=== PATIENT | female | born 1960 | race Caucasian/White ===

== ENCOUNTER 2024-04-24 22:13 | Observation (INO) ==
--- NOTE | 2024-04-24 22:31 | Emergency Department Note ---
History of Present Illness General Chief complaint: Seizure Stated complaint: Seizure History of Present Illness This 63-year-old female with a history of seizures presents to the ER for seizures who is visiting from [place]. Patient states she was out of her gabapentin for 4 days and was finally able to get it refilled today. She did take her evening dose. She believes she had a seizure secondary to this. She states she currently has at least a months worth of all her seizure meds. Patient states she had a grand mal seizure for about 2 minutes while laying on her parents bed. Patient states she feels a little soreness generalized but did not fall to the floor or any other injuries. Patient denies chest pain, dyspnea, fever, chills, numbness, tingling, abdominal pain or any other medical complaints. Home Medications Medication Instructions Recorded Confirmed Type carbamazepine 300 mg 300 mg PO QAM 11/06/20 04/25/24 History capsule,extended release [id number] olmesartan 40 mg tablet 40 mg PO HS 11/06/20 04/25/24 History oxycodone 5 mg tablet 5 mg PO Q6H PRN pain #10 tabs 11/07/20 04/25/24 Rx gabapentin 300 mg capsule 300 mg PO BID 04/25/24 04/25/24 History levetiracetam 500 mg tablet 500 mg PO BID #60 tabs 04/25/24 Rx (Keppra) Allergies Allergy/AdvReac Type Severity Reaction Status Date / Time codeine AdvReac Intermediate TACHYCARDIA--REQUIRED Verified 11/06/20 22:31 ER VISIT [facility] AdvReac Intermediate ANY Uncoded 11/06/20 22:31 [facility]--TACHYCARDIA Past Med/Surg History Problem List (Updated 04/25/24 @ 01:38 by Cheri Mayer PA-C) Asymptomatic bacteriuria Hypertension Seizure (Acute) Medical History Seizures Surgical History (Updated 11/07/20 @ 02:11 by Martha Lopez PA-C) No pertinent past surgical history Social History Smoking Status: Never smoker Hx Alcohol Use: No Hx Substance Use: No Preferred Language: Slovak Communication Ability: Effective Public Health Nutritionist Required: No Beliefs That Will Affect Care: None Current Living Situation: Alone Current Living Situation Comment: Lives alone in [place]-currently here visiting family since January Other Information That Helps Us Care for You: No Feels Safe at Home: Yes Safety Concerns: Feels Safe At This Time Assistive Devices: Walker Review of Systems A total of 10 systems reviewed and were otherwise negative Physical Exam Vital Signs Vital Signs - 24 hr 04/24/24 22:20 04/24/24 22:28 04/25/24 00:39 Temperature 37.1 C Temperature Source Oral Pulse Rate 93 H 94 H Pulse Rate [Apical] 115 H Pulse Rhythm Regular Pulse Strength Normal Respiratory Rate 15 20 Respiratory Effort / Characteristics Non-Labored Respiratory Depth Normal Respiratory Pattern Regular Blood Pressure 180/130 H Blood Pressure [Left Arm] 169/90 H Blood Pressure Mean 146 Blood Pressure Mean [Left Arm] 116 Pulse Oximetry 98 98 Oxygen Delivery Method Room Air Room Air Sepsis Recent Fever Within 48 Hours No Sepsis New/Unexplained Change in Mental Status N/A Sepsis Action Taken by Nursing No Action Required VITALS: Vitals are noted on the nurse's note and reviewed by myself. Vital signs reviewed. GENERAL: Pleasant female moving all extremities, in no acute distress, nondiaphoretic, well-developed well-nourished. SKIN: The skin was without rashes, erythema, edema, or bruising. There is no tenting of the skin. Capillary reflex less than 2 seconds. HEAD: Normocephalic atraumatic. EARS: External auditory canals clear EYES: Pupils equal round and reactive to light and accommodation. Conjunctivae without injection, sclerae without icterus. Extraocular movements intact. NOSE: Patent, no discharge. MOUTH: Mucous membranes moist. Pharynx without erythema or exudate. Uvula midline. Airway patent. Tongue does not deviate. NECK: Supple without nuchal rigidity. No lymphadenopathy. No thyromegaly. Cervical spine is nontender. No JVD. HEART: Regular rate and rhythm LUNGS: Clear to auscultation bilaterally without wheezes, rales or rhonchi. No retractions or accessory muscle use. ABDOMEN: Positive bowel sounds x 4. Normal tympanic percussion. Soft, nontender, without masses or organomegaly. Ibarra sign negative. No guarding or rebound tenderness. No CVA tenderness MUSCULOSKELETAL: No muscle atrophy, erythema, or edema noted. NEURO: Patient was alert and oriented to person place and time. Normal sensation to light and sharp touch. No focal neurological deficits. Course Administered Medications Discontinued Medications Carbamazepine (Carbamazepine Xr 100 Mg Tabcr) 300 mg PO QAM ABELARDO Stop: 05/25/24 08:59 Last Admin: 04/25/24 08:26 Dose: 300 mg Documented By: SUSANNAH Gabapentin (Gabapentin 300 Mg Cap) 300 mg PO BID ABELARDO Stop: 05/25/24 08:59 Last Admin: 04/25/24 08:26 Dose: 300 mg Documented By: SUSANNAH Sodium Chloride (Nss) 1,000 mls @ 999 mls/hr IV .Q1H1M ONE Stop: 04/24/24 23:26 Last Infusion: 04/25/24 00:00 Dose: Infused Documented By: Admin: 04/24/24 22:38 Dose: 999 mls/hr Documented By: TUNG Acetaminophen ([facility]) 1,000 mg in 100 mls @ 400 mls/hr IV NOW STA Stop: 04/25/24 01:08 Last Infusion: 04/25/24 02:24 Dose: Infused Documented By: Admin: 04/25/24 01:53 Dose: 400 mls/hr Documented By: REE Sodium Chloride (Nss) 1,000 mls @ 80 mls/hr IV .[id number] ABELARDO Stop: 04/25/24 13:59 Last Admin: 04/25/24 02:55 Dose: 80 mls/hr Documented By: REE Levetiracetam (Levetiracetam 500 Mg/5 Ml Vial) 1,000 mg IV NOW STA Stop: 04/25/24 00:49 Last Admin: 04/25/24 01:47 Dose: 1,000 mg Documented By: REE Levetiracetam (Levetiracetam 500 Mg Tab) 500 mg PO BID ABELARDO Stop: 05/25/24 08:59 Last Admin: 04/25/24 08:26 Dose: 500 mg Documented By: SUSANNAH Lorazepam (Lorazepam 1 Mg/1 Ml Syr Ed Inj Use) Confirm Administered Dose 1 mg .ROUTE .STK-MED ONE Stop: 04/25/24 00:29 Last Admin: 04/25/24 03:06 Dose: Not Given Documented By: REE Losartan Potassium (Losartan Potassium 50 Mg Tab) 100 mg PO HS ABELARDO Stop: 05/25/24 02:29 Last Admin: 04/25/24 03:12 Dose: Not Given Documented By: REE Medical Decision Making Medical Records Attestation: I reviewed the patient's medical records. Home Medications Current Medication List: was personally reviewed by me Laboratory Data Attestation: I reviewed the patient's lab results. 04/25/24 06:14 04/25/24 06:14 Lab Results 04/24/24 04/24/24 04/24/24 Range/Units 22:29 22:39 22:47 WBC 10.05 (4.8-10.8) K/ul RBC 4.16 L (4.20-5.40) M/uL Hgb 12.6 (12.0-16.0) g/dl Hct 37.6 (37.0-47.0) % MCV 90.4 (80.0-100.0) fL MCH 30.3 (25.0-34.0) pg MCHC 33.5 (32.0-36.0) g/dL RDW Std Deviation 40.7 (36.4-46.3) fL RDW Coeff of Sharif 12.3 (11.5-14.5) % Plt Count 463 H (130-400) K/uL MPV 8.6 L (9.4-12.4) fL Immature Gran % (Auto) 0.4 % Neut % (Auto) 69.4 % Lymph % (Auto) 21.2 % Cocke % (Auto) 6.3 % Eos % (Auto) 1.7 % Baso % (Auto) 1.0 % Neut # (Auto) 6.98 H (1.40-6.50) K/uL Lymph # (Auto) 2.13 (1.20-3.40) K/uL Cocke # (Auto) 0.63 H (0.11-0.59) K/uL Eos # (Auto) 0.17 (0.00-0.50) K/uL Baso # (Auto) 0.10 (0.00-0.20) K/uL Immature Gran # (Auto) 0.04 (0.01-0.20) K/uL Sodium 136 (136-145) mmol/L Potassium 3.8 (3.5-5.1) mmol/L Chloride 102 (98-107) mmol/L Carbon Dioxide 24 (21-32) mmol/L Anion Gap 10 (3-11) BUN 18 (6-23) mg/dl Creatinine 1.03 (0.6-1.2) mg/dl Est Cr Clr Drug Dosing 70.3 ml/min eGFR 60.72 BUN/Creatinine Ratio 17.5 (10-20) Glucose 101 H (70-99(Fasting)) mg/dl POC Glucose 114 H (70-99) mg/dl Lactate 2.5 H* (0.4-2.0) mmol/L Calcium 9.2 (8.6-10.3) mg/dl Magnesium 2.1 (1.7-2.4) mg/dl Total Bilirubin 0.2 (0.2-1.0) mg/dl AST 22 (13-39) U/L ALT 18 (7-52) U/L Alkaline Phosphatase 99 (34-104) U/L Total Creatine Kinase 44 (26-192) U/L Total Protein 7.7 (6.0-8.3) gm/dl Albumin 4.4 (3.4-5.0) gm/dl Globulin 3.3 (2.5-4.0) gm/dl Albumin/Globulin Ratio 1.3 (0.9-2) TSH 3.420 (0.300-4.500) uIu/ml Urine Color Urine Appearance (Clear) Urine pH (4.5-7.5) Ur Specific [place] (1.000-1.030) Urine Protein (Negative) Urine Glucose (UA) (Negative) Urine Ketones (Negative) Urine Blood (Negative) Urine Nitrite (Negative) Urine Bilirubin (Negative) Urine Urobilinogen (Negative) Ur Leukocyte Esterase (Negative) Urine WBC (Auto) (0-5) /hpf Urine RBC (Auto) (0-2) /hpf U Hyaline Cast (Auto) (0-2) /lpf U Epithel Cells (Auto) (0-2) /hpf Urine Bacteria (Auto) (None Seen) 04/25/24 Range/Units 00:30 WBC (4.8-10.8) K/ul RBC (4.20-5.40) M/uL Hgb (12.0-16.0) g/dl Hct (37.0-47.0) % MCV (80.0-100.0) fL MCH (25.0-34.0) pg MCHC (32.0-36.0) g/dL RDW Std Deviation (36.4-46.3) fL RDW Coeff of Sharif (11.5-14.5) % Plt Count (130-400) K/uL MPV (9.4-12.4) fL Immature Gran % (Auto) % Neut % (Auto) % Lymph % (Auto) % Cocke % (Auto) % Eos % (Auto) % Baso % (Auto) % Neut # (Auto) (1.40-6.50) K/uL Lymph # (Auto) (1.20-3.40) K/uL Cocke # (Auto) (0.11-0.59) K/uL Eos # (Auto) (0.00-0.50) K/uL Baso # (Auto) (0.00-0.20) K/uL Immature Gran # (Auto) (0.01-0.20) K/uL Sodium (136-145) mmol/L Potassium (3.5-5.1) mmol/L Chloride (98-107) mmol/L Carbon Dioxide (21-32) mmol/L Anion Gap (3-11) BUN (6-23) mg/dl Creatinine (0.6-1.2) mg/dl Est Cr Clr Drug Dosing ml/min eGFR BUN/Creatinine Ratio (10-20) Glucose (70-99(Fasting)) mg/dl POC Glucose (70-99) mg/dl Lactate (0.4-2.0) mmol/L Calcium (8.6-10.3) mg/dl Magnesium (1.7-2.4) mg/dl Total Bilirubin (0.2-1.0) mg/dl AST (13-39) U/L ALT (7-52) U/L Alkaline Phosphatase (34-104) U/L Total Creatine Kinase (26-192) U/L Total Protein (6.0-8.3) gm/dl Albumin (3.4-5.0) gm/dl Globulin (2.5-4.0) gm/dl Albumin/Globulin Ratio (0.9-2) TSH (0.300-4.500) uIu/ml Urine Color Yellow Urine Appearance Clear (Clear) Urine pH 5.5 (4.5-7.5) Ur Specific [place] 1.020 (1.000-1.030) Urine Protein Trace H (Negative) Urine Glucose (UA) Negative (Negative) Urine Ketones Trace H (Negative) Urine Blood Negative (Negative) Urine Nitrite Negative (Negative) Urine Bilirubin Negative (Negative) Urine Urobilinogen Negative (Negative) Ur Leukocyte Esterase Negative (Negative) Urine WBC (Auto) 0-5 (0-5) /hpf Urine RBC (Auto) 3-5 H (0-2) /hpf U Hyaline Cast (Auto) 0-2 (0-2) /lpf U Epithel Cells (Auto) 6-10 H (0-2) /hpf Urine Bacteria (Auto) 1+ H (None Seen) Imaging Data Radiologist's Impression: Head CT 04/25/24 00:48 EXAM: CT head/brain wo con CLINICAL HISTORY: Pt''s daughter reports pt laid down in bed and had a grand mal seizure. Pt postdictal state upon arrival. EMS reports pt ran out of gabapentin 4 days ago and took first dose today. EMS reports pt does not have an aura but does have "right arm jerks" that typically indicate the medication is "not right". Hx of seizures. Last seizure 2020. Pt c/o left sided headache. PW/GS TECHNIQUE: An axial non-contrast CT scan of the brain was performed from the skull base to the high parietal region. One of the following dose reduction techniques was utilized for this exam: Automated exposure control, adjustment of the mA and/or kV according to patient size, and use of iterative reconstruction. COMPARISON: None. FINDINGS: Brain Parenchyma: Mild age-related cerebral Involutional changes noted Normal attenuation of the cerebral hemispheres, cerebellum, and brainstem. No evidence of acute infarct, hemorrhage, or mass effect. No abnormal areas of hypo- or hyperattenuation. Ventricular System: Ventricles are normal in size and configuration. No evidence of hydrocephalus or ventricular enlargement. Subarachnoid Spaces: wide frontal sulci bilaterlally .. No evidence of subarachnoid hemorrhage or extra-axial fluid collections. Cerebellum and Brainstem: Normal size and signal. No masses, lesions, or areas of abnormal density. Orbits: Normal appearance of the globes, optic nerves, and extraocular muscles. No evidence of orbital masses or abnormal density. Sinuses: Clear paranasal sinuses. No evidence of sinusitis or mucosal thickening. Mastoid Air Cells: Clear mastoid air cells. No evidence of mastoiditis. Skull: Normal skull morphology. IMPRESSION: 1. No acute intracranial abnormality. 2. Mild age-related cerebral Involutional changes noted. Electronically signed by Linda Sarmiento 04-25-2024 06:57 AM MDM Narrative Prior records/ancillary studies reviewed. Patient placed in seizure precautions immediately upon arrival. Nursing notes reviewed. Additional history obtained from family The patient's history was concerning for a possible seizure. Differential diagnosis: Etiologies such as infection, hypoglycemia, electrolyte abnormalities, cardiac sources, intracerebral event, trauma, toxicologic, neurologic, as well as others were entertained. Physical examination: As above. No signs of trauma. ER treatment provided: An order was placed for continuous cardiac monitoring. The monitor shows a rate of 60-100 with a sinus rhythm per my interpretation. IV fluids, gabapentin, Keppra On reassessment the patient felt better. Diagnostics interpretation by me: ECG: ordered for seizure ECG: Normal sinus, normal intervals, no acute ST-T wave changes. Impression normal sinus rhythm independently interpreted by myself Imaging was reviewed and read by radiology The labs Independently Interpreted by myself revealed no worrisome leukocytosis, elevated lactic consistent with patient having a seizure Keppra and Carbamazepine are send outs Consultation: Neurology was consulted patient had another seizure while in the ER. Dr. Nixon recommends giving a gram of Keppra IV and increasing Keppra to the 500 mg twice daily. Consultation: Medicine was consulted case discussed. Patient will be admitted to the medical service for multiple seizures. The patient has a history of seizures and experienced another episode most likely from missing her gabapentin for the past 4 days. Patient had a second seizure while in the ER. I did consult Dr. Nixon and recommends giving a gram of Keppra IV and increasing Keppra to 500 twice daily. Medicine was consulted case discussed. Patient was admitted to the medical service. By the evaluation outlined above emergent etiologies such as infection, hypoglycemia, electrolyte abnormalities, cardiac sources, intracerebral event, toxicologic, as well as others were deemed relatively unlikely. Patient does not drive. The pt informed about the findings as listed above. All questions were answered and pleased with the treatment. The chart was completed utilizing [employer] voice recognition software. Grammatical errors, random word insertions, pronoun errors, and incomplete sentences are an occassional consequence of this system due to software limitations, ambient noise, and hardware issues. Any formal questions or concerns about the content, text, or information contained within the body of this dictation should be directly addressed to the physician resident assistant for clarification. Impression & Plan Seizure Discharge Plan Visit Data Chief Complaint: Seizure Stated Complaint: Seizure ED Provider: Ramirez Bustos ED Midlevel Provider: Martha Lopez Discharge Problem: Seizure Patient Disposition: Admitted As Inpatient Condition: Good Discharge Instructions Interventions: ED Discharge Assessment Last Done: 04/25/24 02:30
[2024-04-24] MEDS: SODIUM CHLORIDE 0.9% 1,000 ML IV ONE (22:38)
[2024-04-24 22:46] LABS: Eosinophils # (auto) 0.17 K/uL (0.00-0.50); Eosinophils % (auto) 1.7 %; Hematocrit (blood only) 37.6 % (37.0-47.0); Hemoglobin 12.6 g/dl (12.0-16.0); Immature Granulocytes # (auto) 0.04 K/uL (0.01-0.20); Immature Granulocytes % (auto) 0.4 %; Lymphocytes # (auto) 2.13 K/uL (1.20-3.40); Lymphocytes % (auto) 21.2 %; Mean Corpuscular Hemoglobin 30.3 pg (25.0-34.0); Mean Corpuscular Hgb Conc 33.5 g/dL (32.0-36.0); Mean Corpuscular Volume 90.4 fL (80.0-100.0); Mean Platelet Volume 8.6 fL (9.4-12.4); Monocytes # (auto) 0.63 K/uL (0.11-0.59); Monocytes % (auto) 6.3 %; Neutrophils # (auto) 6.98 K/uL (1.40-6.50); Neutrophils % (auto) 69.4 %; Platelet Count 463 K/uL (130-400); RDW Coefficient of Variation 12.3 % (11.5-14.5); RDW Standard Deviation 40.7 fL (36.4-46.3); Red Blood Count 4.16 M/uL (4.20-5.40); White Blood Count 10.05 K/ul (4.8-10.8)
[2024-04-24 23:03] LABS: Albumin Globulin Ratio 1.3 (0.9-2); Albumin Level 4.4 gm/dl (3.4-5.0); BUN Creatinine Ratio 17.5 (10-20); Bilirubin,Total 0.2 mg/dl (0.2-1.0); Calcium 9.2 mg/dl (8.6-10.3); Creatinine Clr Calc Pharmacy 70.3 ml/min; Globulin 3.3 gm/dl (2.5-4.0); Magnesium 2.1 mg/dl (1.7-2.4); Potassium 3.8 mmol/L (3.5-5.1); Total Protein 7.7 gm/dl (6.0-8.3)
[2024-04-24 23:17] LABS: Thyroid Stimulating Hormone 3.42 uIu/ml (0.300-4.500)
[2024-04-25 01:04] LABS: Appearance Urine Clear (Clear); Bacteria Urine Automated 1+ (None Seen); Bilirubin Urine Negative (Negative); Blood Urine Negative (Negative); Cast Urine Automated 0-2 /lpf (0-2); Color Urine Yellow; Glucose Urine UA Negative (Negative); Ketones Urine Trace (Negative); Leukocyte Esterase Urine Negative (Negative); Nitrite Urine Negative (Negative); Protein Urine Trace (Negative); Urobilinogen Urine Negative (Negative); WBC Urine Automated 0-5 /hpf (0-5); pH Urine 5.5 (4.5-7.5)
--- NOTE | 2024-04-25 01:13 | History & Physical Report ---
Date of Service April 25, 2024 Assessment & Plan (1) Seizure: (2) Hypertension: (3) Asymptomatic bacteriuria: Plan Patient is a 63-year-old female who lives in [place] who is visiting. She has a past medical history of a known seizure disorder and hypertension. 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 She is being admitted due to a seizure with the medication changes noted in the plan below. #Seizure pt has a grand mal seizure lasting approximately 2 minutes Has a known history of seizure disorder but has been out of her gabapentin x 4 days ER provider spoke with on-call neurologist, Dr. Nixon who recommended the following - increase Keppra 500 Mg daily to BID - Load with 1000 mg IV Keppra now - obtain a head CT head CT ordered lactate 2.5 -> 2L NSS bolus -> 3.1 - repeat lactate with am labs - would expect it to be elevated with recent seizure Ck negative given Ativan 1mg IV in ED continue home carbamazepine 300mg daily and gabapentin 300mg BID carbamazepine and Keppra levels ordered in ED gentle IVF with NSS x1 bag overnight #HTN continue olmesartan HS #Asymptomatic bacteriuria UA showing trace protein, trace ketones, 3-5 RBC, 6-10 epithelial cells, 1+ bacteria Likely contaminant with epithelial cells Asymptomatic Follow cultures VTE ppx: SCDs - low risk and obs Diet: regular Dispo: med tele Admission and Anticipated Discharge Date Admission Date: 04/25/24 History of Present Illness Chief Complaint: seizure Primary Care Provider: LOLA HUNTER Patient is a 63-year-old female who lives in [place] who is visiting. She has a past medical history of a known seizure disorder and hypertension. 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 She had 2 witnessed grand mal seizures today. She missed 4 days of her gabapentin. She takes the following medications carbamazepine 300 QAM, Gabapentin 300 BID, and Keppra 500 daily. Denies fevers, and ROS otherwise unrevealing. She is mildly lethargic on exam. She wishes to be full code at this time. Allergies Allergy/AdvReac Type Severity Reaction Status Date / Time codeine AdvReac Intermediate TACHYCARDIA--REQUIRED Verified 11/06/20 22:31 ER VISIT [facility] AdvReac Intermediate ANY Uncoded 11/06/20 22:31 [facility]--TACHYCARDIA Home Medications Medication Instructions Recorded Confirmed Type carbamazepine 300 mg 300 mg PO QAM 11/06/20 04/25/24 History capsule,extended release [id number] olmesartan 40 mg tablet 40 mg PO HS 11/06/20 04/25/24 History oxycodone 5 mg tablet 5 mg PO Q6H PRN pain #10 tabs 11/07/20 04/25/24 Rx gabapentin 300 mg capsule 300 mg PO BID 04/25/24 04/25/24 History levetiracetam 500 mg tablet 500 mg PO DAILY 04/25/24 04/25/24 History Past Med/Surg History Problem List (Updated 04/25/24 @ 01:38 by Cheri Mayer PA-C) Asymptomatic bacteriuria Hypertension Seizure (Acute) Medical History Seizures Surgical History (Updated 11/07/20 @ 02:11 by Martha Lopez PA-C) No pertinent past surgical history Social History Smoking Status: Never smoker Hx Alcohol Use: No Hx Substance Use: No Preferred Language: Yakut Communication Ability: Effective Senior Systems Analyst Required: No Beliefs That Will Affect Care: None Current Living Situation: Alone Current Living Situation Comment: Lives alone in [place]-currently here visiting family since January Other Information That Helps Us Care for You: No Feels Safe at Home: Yes Safety Concerns: Feels Safe At This Time Assistive Devices: Walker Review of Systems Review of Systems: see HPI Physical Exam Physical Exam: The patient is lethargic, alert and oriented 3, well developed and well nourished, normocephalic and atraumatic, in no acute distress. Non-toxic appearing. HEENT- EOMI, mucous membranes moist. Hearing grossly intact. Heart-normal S1 and S2. No murmurs, rubs or gallops. Lungs-clear bilaterally, no respiratory distress, no accessory muscle use. Abdomen-normal bowel sounds and soft. No ascites noted. Non-tender. Extremities- no clubbing, cyanosis, or edema. Rheumatologic-normal range of motion. Psychiatric-normal affect. Results & Data Results & Data Vital Signs (Past 12 Hours) Vital Signs Temp Pulse Pulse Resp BP BP Pulse Ox 01/19/25 00:39 115 H 20 169/90 H 98 04/24/24 22:28 94 H 04/24/24 22:20 37.1 C 93 H 15 180/130 H 98 O2 Del Method 04/25/24 00:39 Room Air 04/24/24 22:28 04/24/24 22:20 Room Air Code Status & VTE Plan Code Status full VTE Prophylaxis Plan VTE Prophylaxis will be ordered: Yes Supervising Physician Co-Signing Physician Notes Attending addendum: I have physically seen this patient, have supervised the NOAH's activities, and agree with the H&P unless as otherwise noted. Assessment and Plan: The patient is a 63-year-old female with a past medical history of seizure disorder and hypertension, presently being in [place], who is visiting family locally. She unfortunately been without her gabapentin for 4 days, and was noted to have 2 witnessed seizures earlier in the day today. She is brought into the emergency department for further assessment #Seizure disorder- Plan for adjustment of medications per recommendations from neurology are as follows: Continue carbamazepine 300 mg every morning Continue gabapentin 300 mg p.o. twice daily Will give Keppra 1000 mg IV loading dose now, then increase baseline dosing from Keppra 500 mg at bedtime to twice daily CT scan of head without contrast is ordered and pending hypertension Hypertension- Continue olmesartan/losartan formulary interchange with hold parameters Review of laboratories reveals no/suggestion of metabolic disturbance as cause of symptomatology PG Care Time/CCT Total # of Minutes Spent Total Time Spent with Patient: Total time spent is greater than 50% in coordination of care (as documented) at patient's floor/unit and/or counseling patient: Coding Level of Care Code 18950 INT INP/OBS CARE 3/75MIN Diagnoses Seizure R56.9 Hypertension I10 Asymptomatic bacteriuria R82.71
[2024-04-25] MEDS: levETIRAcetam 500 MG/5 ML VIAL IV STA (01:47)
[2024-04-25] MEDS: ACETAMINOPHEN 1,000 MG/100 ML VIAL IV STA (01:53)
[2024-04-25] MEDS ORDERED: ACETAMINOPHEN 325 MG TAB PO PRN (02:30)
[2024-04-25] MEDS ORDERED: ONDANSETRON INJ 2 MG/ML 2 ML VIAL IV PRN (02:30)
[2024-04-25] MEDS: SODIUM CHLORIDE 0.9% 1,000 ML IV SCH (02:55)
[2024-04-25] MEDS: LORazepam 1 MG/1 ML SYR ED Inj Use ONE (03:06)
[2024-04-25] MEDS: LOSARTAN POTASSIUM 50 MG TAB PO SCH (03:12)
[2024-04-25 04:01] VITALS: TEMP 98.6
[2024-04-25] MEDS ORDERED: KETOROLAC TROMETHAMINE 15 MG/ML VIAL IV PRN (06:27)
[2024-04-25 06:40] LABS: Basophils # (auto) 0.08 K/uL (0.00-0.20); Basophils % (auto) 0.8 %; Eosinophils # (auto) 0.08 K/uL (0.00-0.50); Eosinophils % (auto) 0.8 %; Hematocrit (blood only) 29.6 % (37.0-47.0); Hemoglobin 10.2 g/dl (12.0-16.0); Immature Granulocytes # (auto) 0.03 K/uL (0.01-0.20); Immature Granulocytes % (auto) 0.3 %; Lymphocytes # (auto) 2.32 K/uL (1.20-3.40); Lymphocytes % (auto) 23.3 %; Mean Corpuscular Hemoglobin 30.8 pg (25.0-34.0); Mean Corpuscular Hgb Conc 34.5 g/dL (32.0-36.0); Mean Corpuscular Volume 89.4 fL (80.0-100.0); Mean Platelet Volume 8.8 fL (9.4-12.4); Monocytes # (auto) 0.67 K/uL (0.11-0.59); Monocytes % (auto) 6.7 %; Neutrophils # (auto) 6.79 K/uL (1.40-6.50); Neutrophils % (auto) 68.1 %; Platelet Count 382 K/uL (130-400); RDW Standard Deviation 39.2 fL (36.4-46.3); Red Blood Count 3.31 M/uL (4.20-5.40); White Blood Count 9.97 K/ul (4.8-10.8)
--- NOTE | 2024-04-25 06:58 | CT Scan Report ---
EXAM: CT head/brain wo con CLINICAL HISTORY: Pt''s daughter reports pt laid down in bed and had a grand mal seizure. Pt postdictal state upon arrival. EMS reports pt ran out of gabapentin 4 days ago and took first dose today. EMS reports pt does not have an aura but does have "right arm jerks" that typically indicate the medication is "not right". Hx of seizures. Last seizure 2020. Pt c/o left sided headache. PW/GS TECHNIQUE: An axial non-contrast CT scan of the brain was performed from the skull base to the high parietal region. One of the following dose reduction techniques was utilized for this exam: Automated exposure control, adjustment of the mA and/or kV according to patient size, and use of iterative reconstruction. COMPARISON: None. FINDINGS: Brain Parenchyma: Mild age-related cerebral Involutional changes noted Normal attenuation of the cerebral hemispheres, cerebellum, and brainstem. No evidence of acute infarct, hemorrhage, or mass effect. No abnormal areas of hypo- or hyperattenuation. Ventricular System: Ventricles are normal in size and configuration. No evidence of hydrocephalus or ventricular enlargement. Subarachnoid Spaces: wide frontal sulci bilaterlally .. No evidence of subarachnoid hemorrhage or extra-axial fluid collections. Cerebellum and Brainstem: Normal size and signal. No masses, lesions, or areas of abnormal density. Orbits: Normal appearance of the globes, optic nerves, and extraocular muscles. No evidence of orbital masses or abnormal density. Sinuses: Clear paranasal sinuses. No evidence of sinusitis or mucosal thickening. Mastoid Air Cells: Clear mastoid air cells. No evidence of mastoiditis. Skull: Normal skull morphology. IMPRESSION: 1. No acute intracranial abnormality. 2. Mild age-related cerebral Involutional changes noted. Electronically signed by Linda Sarmiento 04-25-2024 06:57 AM
[2024-04-25 07:06] LABS: BUN Creatinine Ratio 17.6 (10-20); Calcium 8.3 mg/dl (8.6-10.3); Creatinine Clr Calc Pharmacy 85.2 ml/min; Potassium 3.8 mmol/L (3.5-5.1)
--- NOTE | 2024-04-25 07:28 | Electrocardiogram Report ---
Test Reason : Blood Pressure : */* mmHG Vent. Rate : 95 BPM Atrial Rate : 95 BPM P-R Int : 172 ms QRS Dur : 78 ms QT Int : 360 ms P-R-T Axes : 58 87 68 degrees QTcB Int : 452 ms Normal sinus rhythm Normal ECG No previous ECGs available Confirmed by Rigo Cook ([id number]) on 04/25/2024 7:27:58 AM Referred By: REFERRED SELF Confirmed By: Rigo Cook
[2024-04-25] MEDS: levETIRAcetam 500 MG TAB PO SCH (08:26)
[2024-04-25] MEDS: carBAMazepine XR 100 MG TABCR PO SCH (08:26)
[2024-04-25] MEDS: GABAPENTIN 300 MG CAP PO SCH (08:26)
[2024-04-25 09:55] VITALS: O2SAT 94
[2024-04-25 10:05] VITALS: RESP 12
--- NOTE | 2024-04-25 11:12 | Discharge Summary ---
Discharge Summary Date of Service April 25, 2024 Principal Dx & Hospital Course #1 = Principal Diagnosis (1) Seizure: (2) Hypertension: (3) Asymptomatic bacteriuria: Plan Patient is a 63-year-old female who lives in [place] who is here visiting family. She has a past medical history of a known seizure disorder and hypertension. She presented after a witnessed grand mal seizure lasting approximately 2 minutes at home. She then had a second witnessed seizure while in the ED. She was given loading dose Keppra IV 1000 mg x 1, Ativan IV 1 mg x 1, and IV fluids in ED. #Seizure Has a known history of seizure disorder but has been out of her gabapentin x 4 days. Last seizure prior to this current episode was in January 2021 ER provider spoke with on-call neurologist, Dr. Nixon Increased Keppra to 500 mg BID (was previously taking Keppra 500 mg daily) Head CT negative Continue home carbamazepine 300mg daily and gabapentin 300mg BID No driving for 6 months until cleared by neurologist Recommend local neurology follow-up as patient splits her time between here and [place] #HTN Chronic, stable Continue olmesartan 40 mg HS #Asymptomatic bacteriuria UA showing trace protein, trace ketones, 3-5 RBC, 6-10 epithelial cells, 1+ bacteria Likely contaminant with epithelial cells Asymptomatic Notes For Next Care Provider Medication Changes From Visit Increased Keppra to 500 mg BID (previously once daily) Admission HPI Per Admitting Provider Patient is a 63-year-old female who lives in [place] who is visiting. She has a past medical history of a known seizure disorder and hypertension. 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 She had 2 witnessed grand mal seizures today. She missed 4 days of her gabapentin. She takes the following medications carbamazepine 300 QAM, Gabapentin 300 BID, and Keppra 500 daily. Denies fevers, and ROS otherwise unrevealing. She is mildly lethargic on exam. She wishes to be full code at this time. Admission Exam Per Admitting Provider The patient is lethargic, alert and oriented 3, well developed and well nourished, normocephalic and atraumatic, in no acute distress. Non-toxic appearing. HEENT- EOMI, mucous membranes moist. Hearing grossly intact. Heart-normal S1 and S2. No murmurs, rubs or gallops. Lungs-clear bilaterally, no respiratory distress, no accessory muscle use. Abdomen-normal bowel sounds and soft. No ascites noted. Non-tender. Extremities- no clubbing, cyanosis, or edema. Rheumatologic-normal range of motion. Psychiatric-normal affect. Discharge Exam General: No acute distress, nondiaphoretic, well-developed, well-nourished. Mouth: Tip of tongue bitten during seizure. Cardiac: Regular rate and rhythm without murmurs gallops or rubs. Pulm: Clear to auscultation bilaterally without wheezes, rales or rhonchi. No respiratory distress. 94% on room air. Abdominal: Soft, nontender, nondistended. Bowel sounds present. Neuro: A&O x3. No focal neurological deficits. Discharge Plan Discharge Items Patient Disposition: Home - Self-Care Reason For Visit: Seizure Discharge Diagnosis: Seizure Condition on Discharge: Good Activity: Per Instructions section Non-emergency contact: Primary Care Provider and Neurologist Call non-emergency contact if: you have any medication questions and your symptoms worsen Follow-up/Referrals: LOLA HARRISON [Other] Diet: Regular Addtl Attending Provider Instructions: Ms. Aldana, You are admitted to the hospital due to a witnessed grand mal seizure. This is likely brought on by missing 4 days worth of gabapentin. Your case was discussed with the on-call neurologist who recommended increasing your Keppra dosage. You had a head CT which was negative for any acute abnormalities. Upon discharge from the hospital: * Your dose of Keppra has been increased to 500 mg TWICE DAILY. You were previously taking Keppra 500 mg once daily. * Continue gabapentin 300 mg twice daily. * Continue carbamazepine 300 mg daily. * Continue olmesartan 40 mg daily for your blood pressure. * Do NOT drive for 6 months until cleared by your neurologist. * Follow-up with your neurologist and PCP. Please return to the hospital if you experience any of the following: * Seizures happen more often or last longer than normal * A seizure lasts more than 5 minutes * You don't wake up between seizures * Confusion that lasts more than 30 minutes after a seizure * Injury during a seizure * Fever of 100.4F (38.0C) or higher, or as advised by your provider * Unusual grouchiness, drowsiness, or confusion * Stiff or painful neck * Headache that gets worse * Chest pain, shortness of breath, difficulty breathing, unable to tolerate oral intake, or any other symptoms concerning for you Pending Studies at Discharge: No Stand-Alone Forms: My [facility], Smoking Cessation Medications and DC Order Prescriptions: New levetiracetam [Keppra] 500 mg Tablet 500 mg PO BID Qty: 60 0RF Continued olmesartan 40 mg tablet 40 mg PO HS carbamazepine 300 mg capsule, ER multiphase 12 hr 300 mg PO QAM oxycodone 5 mg tablet 5 mg PO Q6H PRN (Reason: pain) Qty: 10 0RF Rx Instructions: Initial Treatment gabapentin 300 mg capsule 300 mg PO BID Discontinued levetiracetam 500 mg tablet 500 mg PO DAILY Discharge Orders: Discharge Order (Routine); Ordered 04/25/24 Ordered By: Jinny Rodrigez/Other Patient Handouts: ED Seizure, Recurrent (Adult) Admission Data Admit Date/Time: 04/25/24 01:25 Attending Provider: Eric Bauman Admit Provider: Delvis Dockery Primary Care Provider: LOLA HARRISON Other Providers: Delvis Dockery Hospital Stay Data Consultations 04/25/24 00:54 ED Decision to Admit Stat Diagnostic Imagining Performed 04/25/24 00:48 CT head/brain wo con Stat Pending Results Patient Have Any Pending Studies at Discharge: No Discharge Instructions Given to Patient (Per Discharging Provider) Donavon Alexandre are admitted to the hospital due to a witnessed grand mal seizure. This is likely brought on by missing 4 days worth of gabapentin. Your case was disc ussed with the on-call neurologist who recommended increasing your Keppra dosage. You had a head CT which was negative for any acute abnormalities. Upon discharge from the hospital: * Your dose of Keppra has been increased to 500 mg TWICE DAILY. You were previously taking Keppra 500 mg once daily. * Continue gabapentin 300 mg twice daily. * Continue carbamazepine 300 mg daily. * Continue olmesartan 40 mg daily for your blood pressure. * Do NOT drive for 6 months until cleared by your neurologist. * Follow-up with your neurologist and PCP. Please return to the hospital if you experience any of the following: * Seizures happen more often or last longer than normal * A seizure lasts more than 5 minutes * You don't wake up between seizures * Confusion that lasts more than 30 minutes after a seizure * Injury during a seizure * Fever of 100.4F (38.0C) or higher, or as advised by your provider * Unusual grouchiness, drowsiness, or confusion * Stiff or painful neck * Headache that gets worse * Chest pain, shortness of breath, difficulty breathing, unable to tolerate oral intake, or any other symptoms concerning for you Total Time Total Time Spent Total Time Spent (In Minutes): Greater than 30 minutes spent completing this discharge process including direct patient care, medication reconciliation, documentation, review of labs and images, and coordination of care. Coding Level of Care Code 70930 INP/OBS DISCH >30 MIN Diagnoses Seizure R56.9 Hypertension I10 Asymptomatic bacteriuria R82.71
[2024-04-25 13:34] VITALS: BP 139/80; PULSE 87
== END 2024-04-25 13:32 | disposition home or self-care (01) ==
LOC: EDINP 22:13 → ED 22:13 → SUATTDRO 04-25 01:25 → EDINP 04-25 02:30